=== PATIENT | female | born 1975 | race Caucasian/White ===

== ENCOUNTER → 2018-03-03 12:33 | Outpatient (CLI) | payer MEDICAID, SELFPAY ==
--- NOTE | 2018-03-02 14:29 | FLU_PTH ---
PATIENT: NEVIN NOLASCO LOC: SINDI U#:[id number] AGE/SX: 49/F ROOM: RE03/03/[address]: Dr. Bárbara Dooley MD : 1975 BED: DIS: SPEC #: [id number] RECD: 03/03/18 12:04 STATUS: DALE BRIGIDO #: [id number] JUAN: 03/02/18 14:[address]: Bárbara Dooley DEPT: CYTOLOGY RECD BY: Gustavo Hudson Tissues: A - Thyroid gland, NOS B - Thyroid gland, NOS Procedures: Special Stain Group II Surgery Specimen Level IV Cytospin Fluid Cytology Other HEADER OPERATION: Left thyroid FNA PRE-OP DIAGNOSIS: Thyroid nodule TISSUE SUBMITTED: A - Left thyroid aspirate fluid for cytology, B - Left thyroid FNA slides x8 DIAGNOSIS CYTOLOGY A. Fine needle aspiration, left thyroid nodule aspirate fluid (cytospin and cell block): Adequate for evaluation. Consistent with benign cystic/follicular nodule. B. Fine needle aspiration, left thyroid nodule (smears): Adequate for evaluation. Consistent with follicular nodule of uncertain clinical significance. See cytology study. AM:stefany 03/04/18 CYTOLOGY STUDY Slides are reviewed. B. Focal colloid material is present. The smear is hypercellular containing follicular cells in a microfollicular arrangement. The lesion may represent an adenomatous change in a colloid nodule, adenoma or a follicular neoplasm. The lesion also contains macrophages suggestive of a cystic component. Clinical correlation is necessary. CYTOLOGY GROSS A - Received is 30 ml of cloudy brown fluid labeled with the patient's name and and designated per the requisition as left thyroid. Submitted for cytology preparation including cell block. B - Received are eight smears labeled with the patient's name and designated per the requisition as left thyroid. Submitted for staining. / 03/03/18 TC:? CPT: 19340, 19769, 21054
== END ==
PROVIDERS: Referring Provider Surgery; Visit Provider Surgery
DX: E04.1 Nontoxic single thyroid nodule (principal)
CPT/HCPCS: 88108; 88161; 88305; 88313

== ENCOUNTER 2018-03-31 13:24 | Observation (INO) | payer MEDICAID, SELFPAY ==
--- NOTE | 2018-03-30 20:06 | PCM.HP.BLA ---
History and Physical Date of Admission: 03/31/18 HISTORY AND PHYSICAL EXAMINATION ? CHIEF COMPLAINT: ?Thyroid neoplasia? ? HPI: Theresa presents for further discussion regarding the thyroid nodule neoplasia of the left thyroid lobe. ? The patient is a 42 year old female presents with findings of thyroid nodule. Denies radiation exposure. Denies history of thyroiditis. Denies swallowing problems except with large pills. Denies globus symptoms. Does have intermittent hoarsenss noted for the past 2 1/2 years. ?Denies acid reflux symptoms. Pending ENT consultation. US 02/23/18 - 3.6 cm and 1.3 cm nodule of left lobe. US FNA of thyroid nodule - follicular nodule of uncertain significance, possible neoplasm Mother just recently had parathyroid surgery for primary hyperparathyroidism No thyroid cancer known in family. ? ? 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 ? ? PAST SURGICAL HISTORY ?PAST SURGICAL HISTORY OF?Left?04/30/2015 ?Dr. Quiroz, [facility], removal of kidney stones with lithiasis and stone basketing ?PAST SURGICAL HISTORY OF?kidney stone surgery x 9 ?TONSILLECTOMY HX?1987 ? ? Current Outpatient Prescriptions: Potassium Citrate 15 mEq TbER?TAKE 1 TABLET BY MOUTH ONCE DAILY oxybutynin XL (DITROPAN XL) 5 mg 24 hr tablet?Take 1 tablet by mouth once daily. venlafaxine (EFFEXOR) 25 mg tablet?take 1 tablet by mouth twice a day buPROPion XL (WELLBUTRIN XL) 300 mg 24 hr tablet?Take 1 tablet by mouth once daily. cholecalciferol (VITAMIN D3) 2,000 unit tablet?Take 2 tablets by mouth once daily. Bacitracin Zinc-Polymyxin B (DOUBLE ANTIBIOTIC, B.TRACN ZN,) 500-10,000 unit/gram oint?Apply 1 application to affected area twice daily. CPAP??Supplies: suitable mask per pt preference, chin strap, head gear, humidity, tubing, lifetime supplies. G47.33 Obstructive Sleep Apnea please send 30 day download to [phone] nitroglycerin sublingual (NITROQUICK) 0.4 mg SL tablet?place 1 tablet under the tongue if needed every 5 minutes for chest pain for 3 doses IF NO RELIEF AFTER FIRST DOSE CALL PRESCRIBER OR 911. hydroCHLOROthiazide (HYDRODIURIL, ESIDRIX) 25 mg tablet?Take 1 tablet by mouth twice daily. isosorbide mononitrate ER (IMDUR) 30 mg 24 hr tablet?Take 2 tablets by mouth once daily. atorvastatin (LIPITOR) 20 mg tablet???Take 1 tablet by mouth once daily. CPAP??Initiate CPAP @ 12 cm of water with humidification. Mask (per patient preference- medium Respironics DreamWear under the nose nasal mask without chin strap was used during titration study), optional chin strap (if indicated) , filters, tubing, humidifier and lifetime supplies. ? ? ALLERGIES: Patient has no known allergies. ? PERSONAL HISTORY: Social History ??Marital status: ?Spouse name: ?Years of education: 12 ?Number of children: 2 ? 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 Social History Main Topics ??Smoking status: Never Smoker ?Smokeless tobacco: Never Used ?Alcohol use: Yes ?Comment: occasionally, 1-2 beers per month ??Drug use: No ?Sexual activity: Yes ?Partners with: Male ? control/protection: Injection Social History Narrative ??Has 2 kids ??15 and 9. ? ? FAMILY HISTORY ?Hypertension???Mother?Hyperlipidemia?Mother?Hypertension???Father?Hypertension???Brother?other (rheumatoid arthritis)?Brother? REVIEW OF SYSTEMS: General - denies fevers Cardiovascular - denies history of ME, had workup for chest pain - card cath - no coronary artery disease Pulmonary - has some shortness of breath with exertion, has sleep apnea, denies coughing up blood Gastrointestinal - has constipation, denies abdominal pain Neurological - denies seizures Genitourinary - has had kidney stones Hematological - denies spontaneous/prolonged bleeding Skin - denies nonhealing skin wounds Musculoskeletal - has shoulder pain, has had low back pain, has had bilateral fasciitis Endocrine - denies diabetes, has morbid obesity Psychological ? denies hallucinations ? ? PHYSICAL EXAMINATION: General: ?The patient is 42 year old female, well nourished, well hydrated in no acute distress. ?The patient is oriented to time, place, and person. VITALS: Blood pressure 158/82, pulse 80 ???Ht: 5'6 ? Head ? Normocephalic. EOM intact with sclera clear and no icterus noted. Mouth with mucus membranes moist. Neck - supple with no jugular venous distention noted. Trachea is midline. No carotid bruits noted. No thyroid enlargement or thyroid nodules detected. No masses noted. Lungs ? clear to auscultation. Normal breath sounds. No rales/rhonchi/wheezing noted. No labored breathing noted, such as retractions. No cough heard. Heart ? normal S1 and S2 auscultated. No rubs/clicks/murmurs noted. Regular rate. Abdomen ? soft and benign. Normal bowel sounds. Difficult to determine if any masses or organomegaly due to body habitus. Extremities ? no calf tenderness noted. No pitting edema noted. Skin ? normal skin integrity. Lymph ? no cervical adenopathy detected, no supraclavicular adenopathy detected, no axillary adenopathy detected Neurological ? gait normal, no focal deficits noted. Psych ? calm and appropriate RADIOLOGIC STUDIES: ?As Noted ? ? IMPRESSION: thyroid nodule of uncertain behavior ? PLAN: ??I have discussed the above with the patient. Patient wishes to undergo left thyroid lobectomy I have explained the procedure to the patient. I have counseled the patient as to the risks of the procedure, including but not limited to: infection, bleeding, injury to any blood vessels/nerves, scar tissue, injury to the recurrent laryngeal nerves and their sequelae, injury to the parathyroid glands, wound infections, complications of?anesthesia, etc. ? the patient understands. The patient wishes to proceed. She is scheduled to be evaluated by ENT next week, will schedule for surgery the following week - patient prefers or Wednesday. To be scheduled at [facility]. I have answered all questions to the patient?s satisfaction and the patient has no further questions.
[2018-03-31] VITALS (12 sets, daily range): BP systolic 113–144; BP diastolic 64–95; PULSE 84–101; RESP 16–18; TEMP 36.6–37.5; O2SAT 93–97; BMI 49.5
--- NOTE | 2018-03-31 | IMM_PTH ---
PATIENT: NEVIN NOLASCO LOC: MS3 U#:[id number] AGE/SX: 42/F ROOM: [facility] RE03/31/[address]: Dr. Bárbara Dooley MD : 1975 BED: 1 DIS: 04/01/2018 SPEC #: [id number] RECD: 04/04/18 13:15 STATUS: DALE REQ #: [id number] JUAN: 03/31/18 00:[address]: Bárbara Dooley DEPT: IMMUNOHISTOCHEMISTRY RECD BY: Emerald Hernandez ENTERED: 04/04/18 13:17 SP TYPE: IMMUNO OTHR DR: Dr. Petty Trujillo MD Tissues: Thyroid gland, NOS Procedures: CK19 (initial) CD56 (add) CK19 (add) GAL-3 (add) HBME (add) PHYSICIAN & INSTITUTION [place] [id number] SPECIMEN INFORMATION: Tissue Source: Left thyroid lobe Clinical Info: Thyroid nodule Specimen Number: [id number] #1 & 5 CPT code: 49751, 39394 x7 METHODOLOGY: Deparaffinized sections of prefer/formalin-fixed tissue or PAP/DQ stained slides are incubated with monoclonal/polyclonal antibodies/oligonucleotide probes. Localization is made via biotin free immunoperoxidase method. Appropriate controls are performed and reacted as expected. Results on target cell population are indicated in the following table: RESULTS: ANTIBODY / CLONE RESULT Block 1 CK19 (A53-B/A2.26) positive HBME1 (HBME-1) positive GAL3 (9C4) positive CD56 (123C3.D5) negative Block 5 CK19 (A53-B/A2.26) positive, focal HBME1 (HBME-1) positive GAL3 (9C4) negative CD56 (123C3.D5) positive These tests were developed and their performance characteristics determined by [facility]. They may not have been cleared or approved by the U.S. Food and Drug Administration. The FDA has determined that such clearance or approval is not necessary. INTERPRETATION: Left thyroid, lobectomy: Papillary thyroid microcarcinoma (block 1) Nodular hyperplasia (block 5) CHARO:stefany 04/11/18 Comment: This case is sent to [facility] for expert opinion and reviewed by Dr. Drake. The complete report is viewable in patient's EMR.
--- NOTE | 2018-03-31 12:03 | EKG12_ITS ---
Test Reason : PRE OP Blood Pressure : / mmHG Vent. Rate : 077 BPM Atrial Rate : 077 BPM P-R Int : 166 ms QRS Dur : 078 ms QT Int : 382 ms P-R-T Axes : 025 -06 002 degrees QTc Int : 432 ms Normal sinus rhythm Septal infarct , age undetermined Inferior infarct , age undetermined Abnormal ECG No previous ECGs available Confirmed by MANNY MURRIETA, SHAILESH ([id number]), editorial project manager GREYSON SOUSA ([id number]) on 04/04/2018 5:37:08 PM Referred By: Bárbara Dooley Confirmed By:SHAILESH BRYANT MD
[2018-03-31 12:25] LABS: Internal QC Validated? YES +Cl - CLEAR BKGD; Pregnancy, Urine Negative Negative
[2018-03-31 12:52] LABS: Hematocrit 44.4 % (37-47); Hemoglobin 14.8 g/dl (12.0-15.0); Mean Corp Hgb Conc 33.3 g/gl (32-36); Mean Corpuscular Hgb 29.6 pg (27.0-32.0); Mean Corpuscular Volume 88.8 fL (81-99); Mean Platelet Vol. 9.5 fl (6.2-12.0); Platelet Count 225 K/mm3 (150-450); RBC Distribution Width SD 45.2 fl (35.1-43.9); White Blood Count 7.2 K/mm3 (4.4-11.0)
[2018-03-31 13:00] LABS: Scan Indicated on CBC? Y/N NO
[2018-03-31 13:24] LABS: Anion Gap 8 (5-15); BUN 13 mg/dL (7-18); BUN/Creat Ratio 15.4 RATIO (10-20); Calcium,Total 8.9 mg/dL (8.5-10.1); Chloride 104 mmol/L (98-107); Creatinine, Serum 0.85 mg/dL (0.55-1.02); EST Glomerular Filtration Rate 78 mL/min (>60); Est Glom Filt Rate - Afr Amer 95 mL/min (>60); Estimated Creatinine Clearance 80.71 ml/min; Glucose 102 mg/dL (74-106); Potassium 3.6 mmol/L (3.5-5.1); Sodium Level 138 mmol/L (136-145); Thyroid Stim Hormone (TSH) 1.79 uIU/mL (0.358-3.74)
--- NOTE | 2018-03-31 13:35 | THYROID_PTH ---
PATIENT: NEVIN NOLASCO LOC: MS3 U#:[id number] AGE/SX: 42/F [place] [facility] [place]/[address]: Dr. Bárbara Dooley MD : 1975 BED: 1 DIS: 04/01/2018 SPEC #: [id number] RECD: 03/31/18 15:35 STATUS: DALE REKiki #: [id number] JUAN: 03/31/18 13:[address]: Bárbara Dooley DEPT: SURGICAL PATHOLOGY RECD BY: Mariza Ramsay ENTERED: 04/01/18 09:24 SP TYPE: THYROID OTHR DR: Dr. 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 Nodular hyperplasia. Two out of two lymph nodes negative for metastatic carcinoma. Unremarkable intrathyroidal parathyroid tissue. See cancer summary in the comment section. SJ:rg 04/11/18 COMMENT Immunohistochemistry ([id number]) supports the above diagnosis. The specimen was sent to [facility] for expert opinion and reviewed by Dr. Drake and above diagnosis is rendered. The complete report is viewable in the patient's EMR. This case is discussed with Dr. Dooley on 04/11/18 This case was reviewed and diagnosis discussed with Dr. Wesley Brown on 07/27/19. THYROID CANCER SUMMARY: Procedure - thyroid lobectomy, left Received fresh and postfixed in formalin. Specimen integrity - intact Specimen size - left lobe 5.2 x 2.7 x 2.6 gm Specimen weight - 14.2 gm Tumor focality - unifocal Tumor laterality - left lobe Tumor size - 0.7 x 0.5 cm (measured microscopically) Histologic type - papillary carcinoma, microcarcinoma (occult, latent) Architecture - classical (papillary) Cytomorphology - classical Margins - margins uninvolved by carcinoma. The tumor is 0.1 cm away from the closest inked margin. Tumor capsule - none Tumor capsular invasion - not applicable Lymph-Vascular invasion - not identified Perineural invasion - not identified Extrathyroidal extension - not identified Regional lymph nodes: Number examined - 2 Number involved - 0 Distant metastasis - not applicable Additional pathologic findings - nodular hyperplasia (3.7 cm in greatest dimension, dominant nodule). Unremarkable parathyroid tissue. Ancillary studies - please see IHC report ([id number]). Clinical history - Please make reference to previous specimen ([id number]) fine needle aspiration, left thyroid nodule aspirate fluid with diagnosis of consistent with benign cystic/follicular nodule and fine needle aspiration, left thyroid nodule (smears) with diagnosis of consistent with follicular nodule of uncertain significance. PATHOLOGIC STAGE: pT1a pNx Mx The above summary is in compliance with [employer] (CAP) Cancer Protocols Checklist and [place] Joint Committee on Cancer (AJCC), Staging Manual, 8th Ed. MICROSCOPIC DESCRIPTION Slides are reviewed. GROSS DESCRIPTION Received in fixative is one container labeled with the patient's name and designated left thyroid lobe. The specimen consists of a lobe of thyroid measuring 5.2 x 2.7 x 2.6 cm and weighing 14.2 gm. The external surface is inked. Serial sections reveal a ashley lesion measuring 3.7 x 1.6 x 1.5 cm. No parathyroid glands are grossly identified. Present free in the container is an irregular fragment of yellow fatty tissue measuring 6 mm in diameter. The specimen is sectioned and totally submitted in nine cassettes. Cassette 9 contains the fatty tissue. / AM:stefany 04/01/18 TC:0 CPT: 20627 ADDENDUM ADDENDUM ADDENDUM ADDENDUM ADDENDUM ADDENDUM ADDENDUM ADDENDUM ADDENDUM ADDENDUM ADDENDUM ADDENDUM ADDENDUM ADDENDUM ADDENDUM ADDENDUM 07/26/2019 09:51 ADDENDUM 07/26/2019 09:51 ADDENDUM 07/26/2019 09:51 ADDENDUM 07/26/2019 09:51 ADDENDUM 07/26/2019 09:51 This addendum is added to incorporate an outside pathology consultation report. The case was examined at [facility] (#[id number]) and the following diagnosis was rendered. 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 Additional papillary thyroid carcinoma (0.7 cm), conventional (papillary) type, with lymphatic invasion. Multinodular follicular hyperplasia. Two perithyroidal lymph nodes, negative for neoplasm (0/2). Intrathyroidal parathyroid gland tissue (0.6 cm). Please see complete above mentioned consultation report in EMR
--- NOTE | 2018-03-31 16:07 | OP.PCM_ITS ---
Report of Operation Date of Procedure: 03/31/18 Pre-Operative Diagnosis: left thyroid nodule - neoplasm of uncertain behavior Post-Operative Diagnosis: same Surgery/Procedure Performed:: left thyroid lobectomy and isthmusectomy Description of Surgical Findings:: left thyroid nodule, slight inflammatory changes Type of Anesthesia:: General Anesthesiologist: Enrrique Castañeda Specimen's removed: left thyroid and isthmus Drains: TLS drain in thyroid bed Estimated Blood Loss (mL): 20 ml Fluids Replaced: 1800 ml RL Description of Procedure: After informed consent was obtained, the patient was brought to the Operating Room. Appropriate time out protocol was followed. She was then placed in the supine position. She was then placed under GETA. The patient was then positioned with arms tucked and appropriate padding, with neck extension, and in the slightly reverse Trendelenburg position. The neck and upper chest were then prepped with a sterile surgical skin preparation and appropriate sterile surgical drapes were placed. The landmarks were identified and a low cervical collar incision was made with a 15 blade scalpel and carried down to the subcutaneous tissues using Bovie in the electrocautery mode. The platysma was divided along the incision and then flaps were created superiorly to the cricoid cartilage level and inferiorly to the sternal notch. The fascia overlying the strap muscles was then divided along the midline. The left thyroid gland was i dentified. The plane between the thyroid gland anterior and the strap muscles posteriorly was then bluntly dissected. Dissection continued layer by layer to identify the inferior pole vessels of the left thyroid gland. Of note, there were inflammatory changes in this area. The middle thyroid vein was identified and ligated using the Harmonic scalpel. Blunt dissection continued to rotate the left thyroid gland anteriorly. The superior pole dissection was approached first. The thyroid was from the surrounding tissues using blunt dissection and the tissues were then divided with the Harmonic scalpel. This was done to stay close to the thyroid wall. Blunt dissection was continued to the thyroid gland from the surrounding investiture. The thyroid gland was also retracted inferiorly to assist in defining the superior pole structures. The superior thyroid artery was noted, two clips were placed distally and one close to the thyroid wall after the structure was bluntly dissected and well isolated. It was then transected between the clips. The vein was also noted and bluntly isolated and clips were placed proximally and distally and the vein was then transected. The superior parathyroid gland was noted to be just lateral to these structures and it was bluntly dissected and protected away from the area of dissection. Thus, the superior aspect of the thyroid gland was freed and thus able to be retracted for better exposure of the inferior lobe structures. The inferior pole vessels were noted and these were transected close to the thyroid wall to avoid compromising the vasculature of the parathyroid gland. Dissection continued using the Harmonic scalpel to ligate vessels close to the thyroid wall. The thyroid gland was further retracted medially to expose these structures. The inferior parathyroid gland was noted to be posterior to the enlarged inferior aspect of the left lobe. The recurrent laryngeal nerve was identified and careful attention was made to avoid injury to it. The thyroid gland was densely adherent to the trachea at the location of the recurrent laryngeal nerve, traction was applied to expose this area and some remnant thyroid tissue was left to prevent injury to the nerve due to the thyroid tissue being embedded deeply with it. The left thyroid lobe was thus from the trachea. The isthmus was then transected just medial to the right lobe with the Harmonic scalpel. It was forwarded to pathology for analysis. Surgicel was used for hemostasis. A small 10 [place]alan TLS drain was then placed in the thyroid bed and brought out through the incision. The fascia of the strap muscles was then reapproximated along the midline using Vicryl suture. The platysma muscle was then reapproximated in a transverse fashion using interrupted 2-0 Vicryl suture. The skin incision was then reapproximated using 4-0 Monocryl in a running subcuticular fashion. The drain was brought out through the middle portion of the incision and sutured to the skin using nylon suture. The skin closure was reinforced using Cavilon and Steri-Strips and a Dermibond was applied. The patient was then extubated. She was brought to the Recovery Room in stable condition. She was able to phonate the letter E without difficulty in the PACU. - Complications none noted - Admit VTE Documentation VTE Present on Admission: Yes VTE Mechan Device Prophylaxis: SCD's
[2018-03-31] MEDS: Morphine 2 MG/ML Syringe IV (19:48)
[2018-03-31] MEDS: Lactated Ringers 1,000 ML 75 ML IV (19:51)
[2018-04-01] MEDS: Morphine 2 MG/ML Syringe IV (04:23)
[2018-04-01 04:25] VITALS: BP 152/92; PULSE 90; RESP 16; TEMP 36.6; O2SAT 98
[2018-04-01 06:11] LABS: Calcium,Total 8.7 mg/dL (8.5-10.1)
[2018-04-01 07:55] VITALS: O2SAT 98
[2018-04-01 08:18] VITALS: BP 141/98; PULSE 94; RESP 18; TEMP 36.8; O2SAT 96
[2018-04-01] MEDS: oxyCODONE 5 MG Tablet PO (09:54)
--- NOTE | 2018-04-01 12:26 | PCM.PN.SRG ---
Subjective: Patient feeling well, tolerating liquids - Physical Exam General: Alert, Oriented x3 Oral: Moist Mucosa Neck: Supple, - - dressing intact, dark serous fluid drainage Lungs: Normal air movement Abdomen: Soft Vital Signs Temp Pulse Resp BP Pulse Ox 98.3 F 94 18 141/98 H 96 04/01/18 08:18 04/01/18 08:18 04/01/18 08:18 04/01/18 08:18 04/01/18 08:18 Oxygen Flow Rate (L/min) 2 Oxygen Delivery Method Room Air Weight: 139.1 kg Body Mass Index (BMI) 49.5 Intake and Output for Last 24 Hours 03/30/18 03/31/18 04/01/18 23:59 23:59 23:59 Intake Total 2300 / 2300 1505 / 1505 Output Total 750 / 750 Balance 2300 / 2300 755 / 755 Laboratory Tests Past 24 Hrs 03/31/18 03/31/18 04/01/18 12:36 12:40 05:26 WBC 7.2 RBC 5.00 Hgb 14.8 Hct 44.4 MCV 88.8 MCH 29.6 MCHC 33.3 RDW 14.0 RDW Differential 45.2 H Plt Count 225 MPV 9.5 Sodium 138 Potassium 3.6 Chloride 104 Carbon Dioxide 26.0 Anion Gap 8 BUN 13 Creatinine 0.85 Estim Creat Clear Calc 80.71 Est GFR (MDRD) Af Amer 95 Est GFR (MDRD) Non-Af 78 BUN/Creatinine Ratio 15.4 Glucose 102 Calcium 8.9 8.7 TSH 1.79 Medical Necessity - Tobacco Use Smoking Status: Never smoker Tobacco Use: Non-smoker Assessment/Plan POD#1 s/p left thyroid lobectomy Plan: discharge to home Continue drain, I will follow up with patient on Wednesday for removal calcium normal this morning
--- NOTE | 2018-04-01 12:31 | DCINST_ITS ---
Discharge Diet: No Restrictions Discharge Activity: Return to Normal Activity, May not drive while taking narcotic pain medications. Additional Activity Instructions:: Sponge bathe only Additional Dressing/Incision Instructions:: Empty drain as shown - once to twice per day is adequate Allergies/Adverse Reactions: Allergies No Known Allergies Allergy (Verified 03/25/18 08:28) Medications to take at Discharge Atorvastatin Calcium [Lipitor] 20 mg PO QHS 03/25/18 Bupropion HCl [Wellbutrin Xl] 300 mg PO DAILY 03/25/18 Cholecalciferol (Vitamin D3) [Vitamin D3] 2,000 unit PO BID 03/25/18 Hydrochlorothiazide [Hctz] 25 mg PO BID 03/25/18 Isosorbide Dinitrate 30 mg PO BID 03/25/18 Omeprazole [Prilosec] 40 mg PO DAILY 03/25/18 Oxybutynin [Ditropan] 5 mg PO DAILY 03/25/18 Potassium Citrate [Potassium Citrate ER] 15 meq PO DAILY 03/25/18 Ranitidine [Zantac] 150 mg PO QHS 03/25/18 Venlafaxine HCl [Effexor] 25 mg PO BID 03/25/18 Docusate Sodium [Colace] 100 mg PO BID 2 Days #5 cap 04/01/18 Oxycodone [Oxyir] 5 mg PO Q12H PRN PRN 5 Days #10 tab 04/01/18 The following prescriptions were given: Oxycodone [Oxyir] 5 mg PO Q12H PRN PRN 5 Days #10 tab PRN Reason: Mod-Severe Pain (4-10/10) Docusate Sodium [Colace] 100 mg PO BID 2 Days #5 cap Primary Care Physician: Petty Trujillo MD [Primary Care Provider] - Test Results: Test results from this visit will be discussed in further detail at your follow- up appointment, if applicable. Please Follow Up With: Bárbara Dooley MD - When: to be seen on Apr 04, at 7:45 in the clinic, thank you
[2018-04-01 13:04] VITALS: BP 128/74; PULSE 80; RESP 18; TEMP 36.8; O2SAT 97
== END 2018-04-01 13:10 | disposition home or self-care (01) ==
LOC: MS3 14:52
PROVIDERS: Anesthesiology; Admitting Provider Surgery; Family Provider Internal Medicine; PCP Internal Medicine; Referring Provider Surgery; Visit Provider Surgery
PROC: (CPT 60220; principal; 2018-03-31 13:20)
DX: C73 Malignant neoplasm of thyroid gland (principal); G47.33 Obstructive sleep apnea (adult) (pediatric); E66.01 Morbid (severe) obesity due to excess calories; Z68.42 Body mass index [BMI] 45.0-49.9, adult; Z71.3 Dietary counseling and surveillance; R94.31 Abnormal electrocardiogram [ECG] [EKG]; F41.9 Anxiety disorder, unspecified; F32.9 Major depressive disorder, single episode, unspecified; E78.00 Pure hypercholesterolemia, unspecified; K21.9 Gastro-esophageal reflux disease without esophagitis; Z79.899 Other long term (current) drug therapy
CPT/HCPCS: 00320; 60220; 36415; 80048; 81025; 82310; 84443; 85027; 88307; 88325; 88341; 88342; 93005; 96361; 96374; 96376; 99218; J7120; G0378; G0379; J2405

== ENCOUNTER 2018-04-04 08:44 | Emergency (ER) | payer MEDICAID, SELFPAY ==
[2018-03-31 17:59] VITALS: BMI 49.5
[2018-04-04 08:45] VITALS: BP 165/104; PULSE 90; RESP 18; TEMP 37; O2SAT 98; BMI 51.6
--- NOTE | 2018-04-04 08:59 | EKG12_ITS ---
Test Reason : Blood Pressure : / mmHG Vent. Rate : 083 BPM Atrial Rate : 083 BPM P-R Int : 142 ms QRS Dur : 082 ms QT Int : 382 ms P-R-T Axes : 034 004 007 degrees QTc Int : 448 ms Normal sinus rhythm Septal infarct , age undetermined Abnormal ECG Confirmed by DAELITA MURRIETA, ANGELINE ([id number]), social media editor GREYSON SOUSA ([id number]) on 04/06/2018 9:54:28 AM Referred By: JOSESITO Confirmed By:ANGELINE UREÑA MD
--- NOTE | 2018-04-04 09:04 | ED.DCSUM_ITS ---
- ER Visit Summary Date of Service: 04/04/18 Chief Complaint: Elevated blood pressure History of Present Illness: The patient is a 42 F with elevated blood pressure. Patient was seen by Dr. Dooley this morning and sent to the ED for elevated blood pressure. She had a thyroid lobectomy on . She denies fever. She states over the weekend she has had mild intermittent headaches that are improved with Advil and mild lightheadedness. She denies syncope. Denies numbness or tingling. Denies chest pain or shortness of breath. She went for her postoperative visit today and had drain removed and dressing change. She states wound is well healing per Dr. Dooley. Denies other complaints. Physical Examination: Vitals are stable. Blood pressure 165/104. Patient is afebrile. Alert no acute distress. HEENT exam is unremarkable. Neck is supple. Dressing clean and intact Lungs are clear and equal bilaterally. Heart is regular rate and rhythm. Abdomen is soft nontender nondistended. Extremities are unremarkable. Skin is warm and dry. No focal neurologic deficit. Remainder of exam is unremarkable. Emergency Department Course and Treatment: Patient was given IV fluids, Tylenol. Chemistries show glucose 108, calcium 8.1. Patient continues to have mild headache. She is given Toradol with improvement of her headache. Her repeat blood pressure is 143/91. She is comfortable with discharge home. She will follow-up with her primary care physician and Dr. Dooley. She is advised to return to ED if worsening complaints. Disposition: Discharge home Impression: Hypertension This note was generated with [employer] dictation software. It may contain incorrect words, spelling, and punctuation that were not noted in review of the chart prior to signing ED Disposition - Plan for ED Patient: Instructions: ED HTN Established Referrals: Petty Trujillo MD [Primary Care Provider] - Bárbara Dooley MD [STAFF PHYSICIAN] -
[2018-04-04 09:25] VITALS: BP 149/96; PULSE 84; RESP 19; O2SAT 94
[2018-04-04] MEDS: 0.9% Normal Saline 1,000 ML 1000 ML IV (09:41)
[2018-04-04] MEDS: Acetaminophen 500 MG Tablet 1000 MG PO (09:41)
[2018-04-04 09:51] LABS: BUN 16 mg/dL (7-18); Creatinine, Serum 0.91 mg/dL (0.55-1.02); Estimated Creatinine Clearance 75.39 ml/min; Glucose 108 mg/dL (74-106)
[2018-04-04 09:52] LABS: Anion Gap 3 (5-15); BUN/Creat Ratio 17.6 RATIO (10-20); Calcium,Total 8.1 mg/dL (8.5-10.1); Chloride 109 mmol/L (98-107); EST Glomerular Filtration Rate 72 mL/min (>60); Est Glom Filt Rate - Afr Amer 87 mL/min (>60); Potassium 4.5 mmol/L (3.5-5.1); Sodium Level 139 mmol/L (136-145)
[2018-04-04] MEDS: Ketorolac 30 MG/ML Syringe IV (10:58)
[2018-04-04 11:14] VITALS: BP 143/91; PULSE 76; RESP 15; O2SAT 98
[2018-04-04 11:27] VITALS: BP 150/98; PULSE 80; RESP 18; O2SAT 98
--- NOTE | 2018-04-04 11:30 | ED.DEP ---
ED Disposition - Plan for ED Patient: Instructions: ED HTN Established Referrals: Petty Trujillo MD [Primary Care Provider] - Bárbara Dooley MD [STAFF PHYSICIAN] -
[2018-04-04 11:46] VITALS: BP 146/98; PULSE 74; RESP 18; O2SAT 99
== END 2018-04-04 11:50 | disposition home or self-care (01) ==
LOC: ED 09:38
PROVIDERS: Emergency Provider Emergency Medicine; Family Provider Internal Medicine; PCP Internal Medicine
DX: I10 Essential (primary) hypertension (principal); Z98.890 Other specified postprocedural states; E78.00 Pure hypercholesterolemia, unspecified; Z79.899 Other long term (current) drug therapy
CPT/HCPCS: 80048; 93005; 96361; 96374; 99283; J7030; A4216

== ENCOUNTER → 2022-10-23 | Outpatient (CLI) | payer BC, MEDICAID, SELFPAY ==
[2022-10-23 11:46] LABS: D-Dimer Quantitative (DVT/PE) < 0.27 FEU/ug/m (0.27-0.49)
[2022-10-23 11:52] LABS: Troponin-I HS 4 pg/mL (3.0-54.0)
== END | disposition home or self-care (01) ==
PROVIDERS: PCP Internal Medicine; Referring Provider Nurse Practitioner; Visit Provider Nurse Practitioner
DX: R07.9 Chest pain, unspecified (principal); R06.02 Shortness of breath
CPT/HCPCS: 84484; 85379

== ENCOUNTER 2024-06-30 16:17 | Emergency (ER) | payer BC, SELFPAY ==
[2024-06-30 16:18] VITALS: BP 200/117; PULSE 66; RESP 18; TEMP 36.1; O2SAT 100; BMI 34.9
--- NOTE | 2024-06-30 16:37 | EX.ED.DYSGE1 ---
HPI History of Present Illness Chief Complaint: Hypertension Informant: patient Narrative Narrative: 48-year-old female states she has had swelling in both of her legs for the last couple days, and in an unrelated situation she went to her PCP today at [facility], was her first visit with this provider -- she was looking into issues sleeping and is scheduled for a sleep study now, and her blood pressure according to her was 140/90 so as a result of these issues she was directed here to the emergency department now. Patient states she has not had any swelling in her legs since she had preeclampsia with her last 25 years ago. She has not been on any blood pressure medication and states her blood pressure is usually in the 120s although the last time she was at primary care and had her blood pressure checked it was sometime this past month in May and states it was high but she can remember how high they did not put her on any new medications. She denies any dyspnea with exertion, chest discomfort, orthopnea, she does not have any history of liver or kidney problems that she knows of, she has had no changes in her urination lately, she is nonalcoholic and rarely drinks. She denies any long trips out of the region lately, other reasons for immobilization or sedentary lately, no recent hospitalization or surgery for any reason. No history of DVT or PE. [facility] Medical History (Updated 06/30/24 @ 19:[address] Keenan Bhatia MD) Pre-eclampsia Home Medications ?Medication ?Instructions ?Recorded ?Last Taken ?Type Ranitidine [Zantac] 150 mg PO QHS 03/25/18 Unknown History atorvastatin 20 mg tablet 20 mg PO QHS 03/25/18 Unknown History bupropion HCl 300 mg 24 hr tablet, 300 mg PO DAILY 03/25/18 Unknown History extended release (Wellbutrin XL) cholecalciferol (vitamin D3) 50 2,000 unit PO BID 03/25/18 Unknown History mcg (2,000 unit) capsule (Vitamin D3) hydrochlorothiazide 25 mg tablet 25 mg PO BID 03/25/18 Unknown History isosorbide dinitrate 30 mg tablet 30 mg PO BID 03/25/18 Unknown History omeprazole 20 mg capsule,delayed 40 mg PO DAILY 03/25/18 Unknown History release oxybutynin chloride 5 mg tablet 5 mg PO DAILY 03/25/18 Unknown History potassium citrate 15 mEq (1,620 15 meq PO DAILY 03/25/18 Unknown History mg) tablet,extended release venlafaxine 25 mg tablet 25 mg PO BID 03/25/18 Unknown History furosemide 20 mg tablet 20 mg PO DAILY #4 tabs 06/30/24 Unknown Rx Allergy/AdvReac Type Severity Reaction Status Date / Time No Known Allergies Allergy Verified 06/30/24 16:18 Social History (Updated 06/30/24 @ 18:15 by Stacy Dubon) housing: house Smoking Status: Never smoker ROS ROS ED Constitutional Constitutional ED: Denies chills or fever(s) Eyes Eyes: Denies change in vision or diplopia ENT ENT ED: Denies rhinorrhea or sore throat Cardiovascular Cardiovascular: Reports leg edema; Denies chest pain, orthopnea, palpitations or paroxysmal nocturnal dyspnea Respiratory/Chest Respiratory/Chest: Denies cough, dyspnea, orthopnea or paroxysmal nocturnal dyspnea Gastrointestinal Gastrointestinal: Denies abdominal pain, diarrhea, nausea or vomiting Genitourinary Genitourinary ED: Denies dysuria or hematuria Musculoskeletal Musculoskeletal: Reports other Details: no leg/calf pains ; Denies back pain or neck pain Integumentary Denies abscess or rash Neurologic Neurologic: Denies headache(s), paresthesias or weakness Psychiatric Psychiatric: Denies anxiety or suicidal thoughts EXAM Physical Exam Const Vital Signs: 06/30/24 16:18 06/30/24 17:10 06/30/24 18:14 Temperature 97 F L Temperature Source Temporal Pulse Rate 66 78 Respiratory Rate 18 18 Respiratory Effort Normal Non-Labored Respiratory Pattern Normal Blood Pressure 200/117 H 145/98 H Blood Pressure Mean 144 113 Pulse Ox 100 99 Oxygen Delivery Method Room Air Positive well nourished and well developed General Appearance ED: well developed and NAD HEENT Reports moist mucous membranes normocephalic and atraumatic Eyes PERRL and EOMs intact bilaterally Neck full ROM, supple and no JVD Resp normal respiratory effort and clear to auscultation bilaterally Cardio regular rate, regular rhythm and no murmurs Rate: Negative for tachycardic GI non-tender and non-distended Auscultation: normoactive bowel sounds Palpation: soft Back/Spine no CVA tenderness General Back: other FROM Extremity normal to inspection General Extremety ED: Yes edema; Negative for pulses abnormal or tenderness General Extremity: edema bilateral lower extremity (1+ edema to both lower legs to the mid-proximal tibias; more prominent in the left distal leg than the right. No color changes. No palpable cords or calf tenderness.); Negative for pulses abnormal Neuro oriented x3, CN's II-XII intact bilaterally and no sensory deficits noted Sensorium / Orientation: awake and alert Motor Exam: strength 5/5 throughout Psych mental status grossly normal Skin no rashes or lesions noted and no wounds MDM MDM MDM Narrative Medical decision making narrative: Patient's blood pressure here actually is higher, in triage she was 200/117, but during evaluation her systolics are mostly in the 170-180s. She is not having any acute symptoms other than the edema in her legs for a couple days so no need to treat this emergently, we will monitor it while we run some labs including a D-dimer to rule out DVT which she is low risk for. That was negative as is her renal function and her albumin at 4.1 and the rest of her liver enzymes are normal as well. On recheck after the patient was observed for an hour or 2, her blood pressure was 145/98. That does not need to be treated emergently and can be followed up as an outpatient without the need for new blood pressure medications at this time. Offered prescription for a few days of diuretic, but either way I recommend follow-up as outpatient after the weekend. She was amenable to a prescription for several furosemide to take once daily. Lab Data Attestation: I reviewed the patient's lab results. Labs: Laboratory Results - last 24 hr 06/30/24 16:40 WBC 5.8 RBC 4.66 Hgb 12.3 Hct 39.1 MCV 83.9 MCH 26.4 L MCHC 31.5 L RDW Std Deviation 57.3 H RDW Coeff of Angel 18.9 H Plt Count 231 MPV 9.6 Immature Gran % (Auto) 0.200 Neut % (Auto) 50.2 Lymph % (Auto) 39.5 Dickenson % (Auto) 6.1 Eos % (Auto) 3.5 Baso % (Auto) 0.5 Absolute Neuts (auto) 2.9 Absolute Lymphs (auto) 2.27 Nucleated RBC % 0 D-Dimer Quant (PE/DVT) 0.27 Sodium 140 Potassium 3.9 Chloride 105 Carbon Dioxide 23.9 Anion Gap 12 BUN 9 Creatinine 0.68 L Estim Creat Clear Calc 119.63 Est GFR (MDRD) Non-Af 107 BUN/Creatinine Ratio 13.7 Glucose 91 Calcium 8.2 Total Bilirubin 0.82 AST 25 ALT 22 Alkaline Phosphatase 75 Total Protein 6.5 Albumin 4.1 Globulin 2.4 Albumin/Globulin Ratio 1.7 Discharge Plan Triage Chief Complaint: Hypertension ED Provider: Keenan Bhatia Dx/Rx/DC Orders Clinical Impression: Bilateral edema of lower extremity, Episode of hypertension Instructions: ED Peripheral Edema, Bilateral, ED Hypertension, To Be Confirmed Prescriptions: New furosemide 20 mg tablet 20 mg PO DAILY Qty: 4 0RF No Action atorvastatin 20 MG tablet 20 mg PO QHS venlafaxine 25 MG tablet 25 mg PO BID isosorbide dinitrate 30 MG tablet 30 mg PO BID omeprazole 20 MG capsule 40 mg PO DAILY hydrochlorothiazide 25 MG tablet 25 mg PO BID oxybutynin chloride 5 MG tablet 5 mg PO DAILY bupropion HCl [Wellbutrin XL] 300 MG tablet extended release 24 hr 300 mg PO DAILY cholecalciferol (vitamin D3) [Vitamin D3] 2,000 UNIT capsule 2,000 unit PO BID potassium citrate 15 MEQ tablet extended release 15 meq PO DAILY Ranitidine [Zantac] 150 MG tablet 150 mg PO QHS Primary Care Provider: Petty Trujillo Referrals: Petty Trujillo MD [Primary Care Provider] - (Next week) Print Language: Cymro Disposition Disposition: Home, Self Care
[2024-06-30 16:51] LABS: Absolute Lymphocyte Count 2.27 X10^3/uL (0.83-4.51); Absolute Neutrophil Count 2.9 X10^3/uL (2.0-7.7); Basophil# 0.03 X10^3/uL; Basophil% 0.5 % (0-1); Eosinophils% 3.5 % (0-5); Hematocrit 39.1 % (37-47); Hemoglobin 12.3 g/dL (12.0-15.0); Lymphocyte # 2.27 X10^3/ul (0.83-4.51); Lymphocyte % 39.5 % (19-41); Mean Corp Hgb Conc 31.5 g/dL (32-36); Mean Corpuscular Hgb 26.4 pg (27.0-32.0); Mean Corpuscular Volume 83.9 fL (81-99); Mean Platelet Vol. 9.6 fl (6.2-12.0); Monocyte# 0.35 X10^3/uL; Monocyte% 6.1 % (0-10); NRBC Flagged by Analyzer 0 % (0-5); Neutrophil # 2.89 X10^3/uL (2.7-7.7); Neutrophil % 50.2 % (47-70); Platelet Count 231 K/mm3 (150-450); RBC Distribution Width CV 18.9 % (11.6-14.6); RBC Distribution Width SD 57.3 fl (35.1-43.9); Red Blood Count 4.66 M/mm3 (4.2-5.4); White Blood Count 5.8 K/mm3 (4.4-11.0)
[2024-06-30 17:22] LABS: ALB/GLOB Ratio 1.7 RATIO (0.9-2.4); AST(SGOT) 25 U/L (<=31); Alanine Aminotransfer ALT/SGPT 22 U/L (<=34); Albumin, Serum 4.1 g/dL (3.5-5.0); Alkaline Phosphatase 75 U/L (35-104); Anion Gap 12 (5-15); BUN 9 mg/dL (4-19); BUN/Creat Ratio 13.7 RATIO (10-20); Calcium,Total 8.2 mg/dL (7.6-11.0); Carbon Dioxide 23.9 mmol/L (21.0-32.0); Chloride 105 mmol/L (98-108); Creatinine, Serum 0.68 mg/dL (0.70-1.20); EST Glomerular Filtration Rate 107 (>60); Estimated Creatinine Clearance 119.63 ml/min (50-250); Globulin 2.4 g/dL (2.2-4.2); Glucose 91 mg/dL (70-99); Potassium 3.9 mmol/L (3.3-5.1); Protein, Total 6.5 g/dL (5.9-8.4); Sodium Level 140 mmol/L (133-145); Total Bilirubin 0.82 mg/dL (0.00-1.30)
[2024-06-30 18:14] VITALS: BP 145/98; PULSE 78; RESP 18; O2SAT 99
[2024-06-30 18:36] LABS: D-Dimer Quantitative (DVT/PE) 0.27 FEU/ug/m (0.27-0.49)
[2024-06-30 19:29] VITALS: BP 145/96; PULSE 74; RESP 18; TEMP 36.6; O2SAT 99
== END 2024-06-30 19:30 | disposition home or self-care (01) ==
PROVIDERS: Emergency Provider Emergency Medicine; PCP Internal Medicine; Visit Provider Emergency Medicine
DX: I10 Essential (primary) hypertension (principal); R60.0 Localized edema
CPT/HCPCS: 80053; 85025; 85379; 99282